=== PATIENT | male | born 1990 | race African-American/Black ===

== ENCOUNTER → 2020-04-29 14:34 | Outpatient (CLI) | payer OTHER, SELFPAY ==
--- NOTE | 2020-04-29 | DI.ECHO.S_ITS ---
[facility] +---------+ : : [address] : : : : [id number] : : : : Phone: [phone]+ Echocardiogram Report + + :Name: CLOVER ALCAZAR Study Date: 04/29/2020 Height: 69 in : :[facility] Weight: 235 lb : : Gender: Male BSA: 2.2 m2 : :: 1990 Age: 29 yrs BP: 134/93 mmHg: :Reason For Study: ABNORMAL HEART RHYTHM : :Ordering Physician: DONG, : :IVANA Performed By: Manisha Rae : :Referring: IVANA UMANA : + + Interpretation Summary Normal left ventricle size with ejection fraction 60-65%. Mildly dilated left atrium. Borderline mitral valve prolapse. Mild mitral regurgitation, eccentric jet directed posteriorly. Procedure: A two-dimensional transthoracic echocardiogram with color flow and Doppler was performed. The study quality was technically adequate. There is no prior echocardiogram noted for this patient. The patient was in sinus rhythm with heart rates between 65-80 bpm during the exam. Left Ventricle: The left ventricle is normal in size and wall thickness. The ejection fraction is estimated to be 60-65%. There are no focal wall motion abnormalities. Diastolic parameters suggest probable normal left ventricular diastolic function and normal filling pressures. Right Ventricle: The right ventricle is normal in size and function. Atria: The left atrium is mildly dilated. The right atrium is normal in size. There is no Doppler evidence for an interatrial shunt. Mitral Valve: There is a flat closure plane of the the mitral valve leaflets. There is borderline mitral valve prolapse. There is mild mitral regurgitation. There is an eccentric jet of mitral regurgitation that is directed posteriorly. Aortic Valve: The aortic valve is trileaflet. The aortic valve opens well. There is no aortic valve stenosis. No aortic regurgitation is present. Tricuspid Valve: The tricuspid valve is normal in structure and function. Pulmonary artery pressures cannot be estimated because of the lack of a measurable TR jet velocity but the IVC suggests a CVP of around 3 mmHg. There is trace tricuspid regurgitation. Pulmonic Valve: The pulmonic valve leaflets are thin and pliable; valve motion is normal. There is trace pulmonic regurgitation. Great Vessels: The aortic root is normal size. The dimensions of the ascending aorta are normal. The IVC is of normal diameter and collapses greater than 50% with a sniff. This suggests a low right atrial pressure of 3 mm Hg. Pericardium/ Pleura There is no pericardial effusion. There is no pleural effusion. MMode/2D Measurements & Calculations LVIDd: 5.3 cm LVOT diam: 2.6 cm LVIDs: 3.5 cm Ao root diam: 3.4 cm FS: 34.2 % asc Aorta Diam: 2.9 cm EPSS: 0.92 cm Ao Arch Diam (Prox Trans): 2.7 cm IVSd: 0.79 cm LVPWd: 0.73 cm LV bajwa. diameter/BSA (cm/m^2): 2.4 LV sys. diameter/BSA (cm/m^2): 1.6 LA A2 area: 25.0 cm2 RA long axis: 5.7 cm LA A4 area: 21.2 cm2 RA area: 22.3 cm2 LA length (vol): 5.9 cm RA vol: 73.9 ml LA vol: 76.1 ml RA : 33.4 ml/m2 LA vol index: 34.4 ml/m2 IVC diam: 1.5 cm RVD1 (basal): 4.0 cm TAPSE: 2.9 cm Doppler Measurements & Calculations Ao V2 max: 113.2 cm/sec LVOT Max Leno: 72.8 cm/sec Ao V2 mean: 71.9 cm/sec LV V1 max P.1 mmHg Ao max P.1 mmHg LV V1 VTI: 14.0 cm Ao mean P.5 mmHg KRISTINE(I,D): 3.2 cm2 Ao V2 VTI: 23.5 cm KRISTINE(V,D): 3.5 cm2 sev ratio: 0.59 KRISTINE indexed to BSA (cm^2/m^2): 1.5 MV E max leno: 54.7 cm/sec PA V2 max: 48.0 cm/sec MV A max leno: 40.7 cm/sec PA V2 mean: 32.9 cm/sec MV E/A: 1.3 PA mean P.50 mmHg Med Peak E' Leno: 10.7 cm/sec PA pr(Accel): 27.6 mmHg E/E' med: 5.1 Lat Peak E' Leno: 14.0 cm/sec E/E' lat: 3.9 E/e' average: 4.5 MV dec time: 0.24 sec SV(LVOT): 76.1 ml Electronically signed by: Jhonatan Velazquez on Reading Physician:04/29/2020 06:36 PM
== END ==
PROVIDERS: Referring Provider Student in an Organized Health Care Education/Training Program; Visit Provider Student in an Organized Health Care Education/Training Program
DX: I34.0 Nonrheumatic mitral (valve) insufficiency (principal); I49.9 Cardiac arrhythmia, unspecified
CPT/HCPCS: 93306